=== PATIENT | female | born 1985 | race Caucasian/White ===

== ENCOUNTER 2024-09-19 12:03 | Emergency (ER) | payer MEDICAID ==
[~2024-09-19] VITALS: Ht 165.1 cm; Wt 69.3 kg
[2024-09-19 12:06] VITALS: BP 134/92; PULSE 78; RESP 16; O2SAT 100
[2024-09-19] MEDS ORDERED: AMOX-580 PO (14:11)
[2024-09-19] MEDS ORDERED: RIFA300C65 PO (14:14)
[2024-09-19] MEDS ORDERED: rifampin 300mg capsule PO SCH (14:15)
[2024-09-19] MEDS: dexamethasone 4mg tablet PO ONE (14:28)
[2024-09-19] MEDS: rifampin 300mg capsule PO ONE (14:29)
[2024-09-19] MEDS: amox tr/potassium clavulanate 875/125mg TAB PO ONE (14:29)
[2024-09-19 14:33] VITALS: TEMP 97.9
== END 2024-09-19 14:35 | disposition home or self-care (01) ==
LOC: ER 12:04
DX: K08.89 Other specified disorders of teeth and supporting structures (principal); R22.0 Localized swelling, mass and lump, head; F17.200 Nicotine dependence, unspecified, uncomplicated
CPT/HCPCS: 99284